=== PATIENT | male | born 1955 | race Caucasian/White ===

== ENCOUNTER → 2017-06-29 | Outpatient (CLI) | payer BC ==
--- NOTE | 2017-06-29 10:09 | US ---
EXAMINATION TYPE: US liver DATE OF EXAM: 06/29/2017 COMPARISON: 2011 CLINICAL HISTORY: R74.8 Elevated liver enzymes. large body habitus EXAM MEASUREMENTS: Liver Length: 17.3 cm Gallbladder Wall: 0.1 cm CBD: 0.6 cm Right Kidney: 10.4 x 4.3 x 5.5 cm Pancreas: Tail obscured by overlying bowel gas Liver: fatty liver , mildly heterogenous Gallbladder: wnl Evidence for sonographic Wilson's sign: No CBD: wnl Right Kidney: wnl IMPRESSION: 1. Mild fatty infiltration liver.
== END | disposition home or self-care (01) ==
LOC: RADUSWWP 09:20
PROVIDERS: ATTEND Family Medicine
DX: K76.0 Fatty (change of) liver, not elsewhere classified (principal)
CPT/HCPCS: 76705

== ENCOUNTER → 2018-04-24 | Outpatient (CLI) | payer BC ==
--- NOTE | 2018-04-24 08:56 | US ---
EXAMINATION TYPE: US carotid duplex BILAT DATE OF EXAM: 04/24/2018 COMPARISON: NONE CLINICAL HISTORY: i25.9 ischemic heart disease; coronary artery stent; NE EXAM MEASUREMENTS: RIGHT: Peak Systolic Velocity (PSV) cm/sec ----- Right CCA: 75.9 ----- Right ICA: 94.3 ----- Right ECA: 74.7 ICA/CCA ratio: 1.2 RIGHT: End Diastole cm/sec ----- Right CCA: 20.2 ----- Right ICA: 32.6 ----- Right ECA: 13.6 LEFT: Peak Systolic Velocity (PSV) cm/sec ----- Left CCA: 80.0 ----- Left ICA: 93.2 ----- Left ECA: 84.4 ICA/CCA ratio: 1.2 LEFT: End Diastole cm/sec ----- Left CCA: 19.4 ----- Left ICA: 33.7 ----- Left ECA: 11.7 VERTEBRALS (direction of flow): Right Vertebral: Antegrade Left Vertebral: Antegrade Rhythm: Normal Mild intimal wall changes are seen at bilateral carotid bifurcation and PSV is wnl bilaterally. Incre ased PSV is noted without wall plaque in proximal CCA bilaterally. IMPRESSION: Mild degree of grayscale atheromatous plaquing with no sonographically evident hemodynam ically significant stenosis within either visualized carotid arterial system.
== END ==
LOC: RADUSWWP 08:09
PROVIDERS: ATTEND Family Medicine
DX: I70.90 Unspecified atherosclerosis (principal)
CPT/HCPCS: 93880

== ENCOUNTER → 2018-06-28 | Outpatient (CLI) | payer BC ==
--- NOTE | 2018-06-29 10:20 | ECHOS ---
STRESS ECHOCARDIOGRAM INDICATIONS: Heart disease. BASELINE HEART RATE: 61 BASELINE BLOOD PRESSURE: 152/102 MAXIMUM HEART RATE: 145 MAXIMUM BLOOD PRESSURE: 180/100 85% MPHR: 133 100% MPHR: 157 METS: 11.1 MAXIMUM STAGE REACHED: III TOTAL EXERCISE TIME: 9:39 CLINICAL INFORMATION: A stress echocardiographic study was performed. Patient was exercised for a total period of 9 minutes and 30 seconds. Peak heart rate of 145 was achieved, maximum blood pressure of 180/100 mmHg was noted. Resting EKG shows normal sinus rhythm with normal RI interval and QRS duration and normal ST-T waves. During exercise, upsloping ST- segment changes were noted. Occasional PVCs and couplets were noted. The baseline echocardiographic images reveals normal left ventricular chamber size with normal left ventricular systolic function in the immediate postexercise. Normal increase in the wall thickness and contractility was noted. FINAL IMPRESSION: 1. This stress echocardiographic study is negative for stress-induced ischemia. 2. EKG portion of the stress test is not suggestive of ischemia. 3. Occasional premature ventricular contractions were noted. MMODL / IJN: [id number] /
== END | disposition home or self-care (01) ==
LOC: RADNMMAIN 09:31
PROVIDERS: ATTEND Family Medicine
DX: I25.9 Chronic ischemic heart disease, unspecified (principal)
CPT/HCPCS: 93351